=== PATIENT | male | born 1955 | race African-American/Black ===

== ENCOUNTER 2020-12-20 10:43 | Emergency (ER) | payer OTHER ==
[2020-12-20 10:59] VITALS: BMI 24.4
[2020-12-20 12:38] LABS: EPI CELLS 2 /uL (0-25.1); HYALINE CASTS 2 /uL (0-3.1); PH,URINE 5.5 (5.0-8.0); URINE APPEARANCE CLEAR; URINE BACTERIA >9,000 /uL (0-1359); URINE BILIRUBIN NEGATIVE (NEGATIVE); URINE COLOR YELLOW; URINE GLUCOSE (UA) NEGATIVE (NEGATIVE); URINE KETONE NEGATIVE (NEGATIVE); URINE LEUK ESTERASE 2+ (NEGATIVE); URINE NITRITE POSITIVE (NEGATIVE); URINE PROTEIN NEGATIVE (NEGATIVE); URINE RBC 4 /uL (0-23.9); URINE UROBILINOGEN 0.2 mg/dL (0.2-1.0); URINE WBC 229 /uL (0-25.8)
[2020-12-20] MEDS ORDERED: TAMSULOSIN HCL 0.4 MG CAP PO ONE (12:48)
[2020-12-20] MEDS ORDERED: TAMSULOSIN HCL 0.4 MG CAP ONE (13:01)
[2020-12-20 14:29] LABS: BASO % 0.7 % (0-2.0); EOS % 0.7 % (0-4.5); HEMATOCRIT 43.5 % (35.4-49); HEMOGLOBIN 14.8 GM/dL (11.7-16.9); MCH 30.8 pg (25.7-33.7); MEAN CELL VOLUME 90.6 fl (80-96); MEAN PLT VOLUME 8.5 fl (7.5-11.1); MONO % 10.1 % (3.8-10.2); NEUT % 47.5 % (42.8-82.8); PLATELET COUNT 239 K/MM3 (134-434); RDW 15.3 % (11.9-15.9); WHITE BLOOD COUNT 4.9 K/mm3 (4.0-10.0)
[2020-12-20 14:51] LABS: BLOOD UREA NITROGEN 15.8 mg/dL (7-18); CALCIUM 9.1 mg/dL (8.5-10.1)
[2020-12-20 14:52] LABS: ALBUMIN 4.1 g/dl (3.4-5.0)
[2020-12-20 14:56] LABS: BILIRUBIN,TOTAL 0.4 mg/dL (0.2-1); TOT PROT 8.1 g/dl (6.4-8.2)
[2020-12-20 15:21] VITALS: BP 142/75; PULSE 82; TEMP 97.1
== END 2020-12-20 15:00 | disposition home or self-care (01) ==
LOC: JER 10:43
DX: N40.1 Benign prostatic hyperplasia with lower urinary tract symptoms (principal); R33.8 Other retention of urine; N30.00 Acute cystitis without hematuria
CPT/HCPCS: 36415; 80053; 81003; 85025; 87086; 87186; 99283-25

== ENCOUNTER 2021-01-10 09:02 | Emergency (ER) | payer OTHER ==
[2021-01-10 09:16] VITALS: BMI 23.8
[2021-01-10 10:40] LABS: BASO % 0.8 % (0-2.0); LYMPH % 48.3 % (8-40); MCH 30.1 pg (25.7-33.7); MCHC 33.4 g/dl (32.0-35.9); MEAN CELL VOLUME 90.2 fl (80-96); MONO % 9.1 % (3.8-10.2); NEUT % 40.8 % (42.8-82.8); PLATELET COUNT 259 10^3/uL (134-434); RBC 4.99 M/mm3 (4.00-5.60); RDW 15.6 % (11.9-15.9); WHITE BLOOD COUNT 6.4 K/mm3 (4.0-10.0)
[2021-01-10 10:45] LABS: EPI CELLS 5 /uL (0-25.1); HYALINE CASTS 0 /uL (0-3.1); PH,URINE 6.5 (5.0-8.0); URINE APPEARANCE CLEAR; URINE BACTERIA >9,000 /uL (0-1359); URINE BILIRUBIN NEGATIVE (NEGATIVE); URINE COLOR YELLOW; URINE GLUCOSE (UA) NEGATIVE (NEGATIVE); URINE KETONE NEGATIVE (NEGATIVE); URINE LEUK ESTERASE 1+ (NEGATIVE); URINE NITRITE POSITIVE (NEGATIVE); URINE PROTEIN NEGATIVE (NEGATIVE); URINE RBC 2 /uL (0-23.9); URINE UROBILINOGEN 0.2 mg/dL (0.2-1.0); URINE WBC 59 /uL (0-25.8)
[2021-01-10] MEDS ORDERED: CEPHALEXIN MONOHYDRATE 500 MG CAPSULE (UD) PO ONE (10:59)
[2021-01-10] MEDS ORDERED: CEPHALEXIN MONOHYDRATE 500 MG CAPSULE (UD) ONE (11:09)
[2021-01-10 11:12] LABS: CALCIUM 9.4 mg/dL (8.5-10.1)
[2021-01-10 11:13] LABS: ALBUMIN 4.2 g/dl (3.4-5.0); BLOOD UREA NITROGEN 10.5 mg/dL (7-18)
[2021-01-10 11:16] LABS: CREATININE 1.1 mg/dL (0.55-1.3)
[2021-01-10 11:18] LABS: BILIRUBIN,TOTAL 0.4 mg/dL (0.2-1); TOT PROT 8.2 g/dl (6.4-8.2)
[2021-01-10 13:36] VITALS: BP 110/68; PULSE 88; TEMP 98.5
== END 2021-01-10 13:35 | disposition home or self-care (01) ==
LOC: JER 09:02
DX: R33.9 Retention of urine, unspecified (principal)
CPT/HCPCS: 36415; 80053; 81003; 85025; 87086; 87186; 99284-25

== ENCOUNTER 2021-08-08 08:16 | Emergency (ER) | payer OTHER ==
[2021-08-08 08:25] VITALS: BP 143/85; PULSE 93; TEMP 97.2; BMI 24.3
== END 2021-08-08 09:49 | disposition home or self-care (01) ==
LOC: JERFT 08:16
DX: G47.00 Insomnia, unspecified (principal)
CPT/HCPCS: 99281-25

== ENCOUNTER 2021-08-16 08:12 | Emergency (ER) | payer OTHER ==
[2021-08-16 08:29] VITALS: BP 148/77; PULSE 86; TEMP 97.6; BMI 23.6
== END 2021-08-16 11:10 | disposition home or self-care (01) ==
LOC: JERFT 08:12 → JER 08:12 → JERFT 11:10
DX: G47.00 Insomnia, unspecified (principal)
CPT/HCPCS: 70450-TC; 99284-25

== ENCOUNTER 2021-08-20 06:50 | Emergency (ER) | payer OTHER ==
[2021-08-20 07:41] VITALS: BP 126/80; PULSE 102; TEMP 97.8; BMI 23.6
[2021-08-20] MEDS ORDERED: KETOROLAC TROMETHAMINE 30 MG/1 ML VIAL IM ONE (08:18)
[2021-08-20] MEDS ORDERED: LIDOCAINE 5% TOPICAL PATCH TP ONE (08:18)
[2021-08-20] MEDS ORDERED: LIDOCAINE 5% TOPICAL PATCH ONE (08:39)
[2021-08-20] MEDS ORDERED: KETOROLAC TROMETHAMINE 15 MG/ML VIAL ONE (08:39)
[2021-08-20] MEDS ORDERED: LIDOCAINE PATCH REMOVAL MC ONE (22:00)
== END 2021-08-20 09:05 | disposition home or self-care (01) ==
LOC: JER 06:50 → JERFT 06:50
PROC: 3E0233Z Introduction of Anti-inflammatory into Muscle, Percutaneous Approach (ICD-10-PCS; principal; 2021-08-20)
DX: M54.50 Low back pain, unspecified (principal)
CPT/HCPCS: 99284-25